=== PATIENT | female | born 1970 | race Two or more races ===

== ENCOUNTER 2025-05-27 17:58 | Emergency (ER) | payer OTHER ==
[~2025-05-27] VITALS: Ht 162.6 cm; Wt 63.5 kg
[2025-05-27] MEDS ORDERED: SYNTHROID75 MCG (18:28)
[2025-05-27] MEDS ORDERED: NORFLEX100MG PO (20:50)
== END 2025-05-27 21:30 | disposition home or self-care (01) ==
LOC: ER 17:58
DX: S00.93XA Contusion of unspecified part of head, initial encounter (principal); S40.022A Contusion of left upper arm, initial encounter; S20.229A Contusion of unspecified back wall of thorax, initial encounter; S80.12XA Contusion of left lower leg, initial encounter; W18.39XA Other fall on same level, initial encounter; Y93.89 Activity, other specified; Y92.89 Other specified places as the place of occurrence of the external cause; Y99.9 Unspecified external cause status; E03.9 Hypothyroidism, unspecified; Z88.6 Allergy status to analgesic agent; M51.369 Other intervertebral disc degeneration, lumbar region without mention of lumbar back pain or lower extremity pain